=== PATIENT | female | born 1995 | race Caucasian/White ===

== ENCOUNTER 2021-02-24 02:21 | Inpatient (IN) ==
[2021-02-24] MEDS ORDERED: PENICILLIN G POTASSIUM 6 MU in DEXTROSE 5% 250 ML IV STA (03:28)
[2021-02-24] MEDS ORDERED: OXYTOCIN 30 UNITS/500 ML BAG IV PRN ×2 (03:28→14:13)
[2021-02-24] MEDS: LACTATED RINGER'S 1,000 ML IV PRN ×2 (03:28→04:50)
[2021-02-24] MEDS ORDERED: ePHEDrine sulfate 50 MG/ML AMP ONE (03:34)
[2021-02-24] MEDS ORDERED: BUPIVACAINE 0.25% 30 ML VIAL ONE ×2 (03:34→08:54)
[2021-02-24] MEDS ORDERED: SODIUM CHLORIDE 0.9% INJ 10 ML VIAL ONE (03:34)
[2021-02-24] MEDS ORDERED: fentaNYL 2MCG/ML ROPIVACAINE 1.25MG/ML 100 ML BAG EPI ONE (03:35)
[2021-02-24] MEDS ORDERED: fentaNYL citrate 100 MCG/2 ML VIAL ONE ×2 (03:35→08:55)
[2021-02-24 03:52] LABS: Hematocrit (blood only) 39.7 % (37-47); Hemoglobin 14.3 g/dL (12.0-16.0); Mean Corpuscular Hemoglobin 33.5 pg (25-34); Mean Platelet Volume 11.4 fL (7.4-10.4); Platelet Count 205 K/uL (130-400); RDW Coefficient of Variation 13.1 % (11.5-14.5); RDW Standard Deviation 44.2 fL (36.4-46.3); Red Blood Count 4.27 M/uL (4.2-5.4); White Blood Count 14.93 K/uL (4.8-10.8)
[2021-02-24] MEDS ORDERED: ONDANSETRON INJ 2 MG/ML 2 ML VIAL IV PRN (04:26)
[2021-02-24] MEDS ORDERED: diphenhydrAMINE 50 MG/ML VIAL IV PRN (04:26)
[2021-02-24] MEDS ORDERED: NALOXONE HCL 1 MG in SODIUM CHLORIDE 0.9% 1000ML 1,000 ML IV PRN (04:26)
[2021-02-24] MEDS ORDERED: ePHEDrine sulfate 50 MG/ML AMP IV PRN (04:26)
[2021-02-24] MEDS ORDERED: NALBUPHINE HCL INJ 10 MG/ML AMP IV PRN (04:26)
[2021-02-24] MEDS ORDERED: fentaNYL 2MCG/ML ROPIVACAINE 1.25MG/ML 100 ML BAG EPI PRN (04:26)
[2021-02-24] MEDS ORDERED: NALOXONE HCL 0.4 MG/1 ML VIAL/CARP IV PRN (04:26)
--- NOTE | 2021-02-24 04:28 | Anesthesiology Consultation ---
Date of Service February 24, 2021 Assessment & Plan (1) Encounter for pre-operative examination: Chart Review Chart Review: Patient NOT seen in Pre Admission Testing and Acceptable Risk for Labor Epidural Consults Requested none History Height/Weight Height: 5 ft 4 in Weight: 84.822 kg Allergies Allergy/AdvReac Type Severity Reaction Status Date / Time No Known Allergies Allergy Verified 02/19/21 13:31 Medications Home Medications Medication Instructions Recorded Confirmed Last Taken levothyroxine 25 mcg tablet 25 mcg PO DAILY 06/20/20 02/19/21 Unknown prenat.vits,zeeshan,lll-qahl-ckyqu 1 tab PO DAILY 07/03/20 02/19/21 Unknown cholecalciferol (vitamin D3) 50 4,000 unit PO DAILY #30 cap 12/20/20 02/19/21 Unknown mcg (2,000 unit) capsule Breast Pump #1 ea 01/24/21 02/19/21 Unknown Breast Pump #1 ea 02/13/21 02/19/21 Unknown Active Medications Generic Name Dose Route Start Last Admin Trade Name Freq PRN Reason Stop Dose Admin Lactated Ringer's 1,000 mls @ 125 mls/hr 02/24/21 03:28 02/24/21 03:28 Lr IV 02/26/21 03:27 999 mls/hr .Q8H PRN Administration L&D Protocol Protocol Past Medical History Medical History (Updated 02/24/21 @ 04:27 by John Stallings MD) Dermoid cyst of arm Encounter for pre-operative examination Varicella vaccination Past Family History Family History Family/Other Breast cancer cousin Mother Endometriosis Hypertension Sarcoidosis Grandmother (Maternal) Hyperthyroidism Denies family history of Ovarian cancer Colorectal cancer Past Surgical History Surgical History [place] teeth extracted Past Anesthesia History No Hx of Anesthesia Complications and No Family Hx of Anesthesia Complications History of PONV No Hx of PONV and No Hx of Motion Sickness Social History Smoking Status: Never smoker Do You Dip or Chew Tobacco: No Hx Alcohol Use: No Hx Substance Use: No substance use type: does not use Physical Exam Vital Signs Last Vital Signs Temp 36.8 C 02/24/21 02:49 Pulse 100 H 02/24/21 04:43 Resp 18 02/24/21 02:49 BP 131/85 02/24/21 04:36 Pulse Ox 95 02/24/21 04:43 Testing Laboratory Results 02/24/21 03:40
[2021-02-24] MEDS ORDERED: PENICILLIN G POTASSIUM 3 MU in DEXTROSE 5% 100 ML IV PRN (06:28)
--- NOTE | 2021-02-24 06:30 | History & Physical Report ---
Date of Service February 24, 2021 Assessment & Plan (1) : Plan: 25 y/o G1 at 39 1/7 wga presenting in labor VSS Fetus cat 1 primarily, had decel during straight cath but recovered Labor - plan arom, good progression GBS +, pcn started epidural in place Admission and Anticipated Discharge Date Admission Date: February 24, 2021 History of Present Illness Chief Complaint: Ctx Primary Care Provider: Amber Bautista MD 25 y/o G1 at 39 1/7 wga w/ ROCHELLE 03/02 by [facility] tri US presents w/ c/o ctx. +FM; denied LOF, VB. She was checked and found to be 2-3/90/-2 by nursing and romina q3-4min. 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 cycles 06/2020 neg cytology Denies hx STIs Allergies Allergy/AdvReac Type Severity Reaction Status Date / Time No Known Allergies Allergy Verified 02/19/21 13:31 Home Medications Medication Instructions Recorded Confirmed Type levothyroxine 25 mcg tablet 25 mcg PO DAILY 06/20/20 02/24/21 History prenat.vits,zeeshan,hch-pbol-mddtp 1 tab PO DAILY 07/03/20 02/24/21 History cholecalciferol (vitamin D3) 50 4,000 unit PO DAILY #30 cap 12/20/20 02/24/21 Rx mcg (2,000 unit) capsule Breast Pump #1 ea 01/24/21 02/19/21 Rx Breast Pump #1 ea 02/13/21 02/19/21 Rx Patient History Medical History (Updated 02/24/21 @ 06:27 by Marissa Gleason MD) Dermoid cyst of arm Encounter for pre-operative examination Robert's thyroiditis Varicella vaccination Surgical History [place] teeth extracted Family History Family/Other Breast cancer cousin Mother Endometriosis Hypertension Sarcoidosis Grandmother (Maternal) Hyperthyroidism Denies family history of Ovarian cancer Colorectal cancer Social History (Updated 07/03/20 @ 10:11 by Micheline Perez) Smoking Status: Never smoker Second Hand Exposure: No; Do You Dip or Chew Tobacco: No; Hx Alcohol Use: No Hx Substance Use: No Preferred Language: [place]al[place] Communication Ability: Effective Injection Molding Engineer Required: No Beliefs That Will Affect Care: None marital status: marital status details: Dereje Jean (24) [phone] Current Living Situation: Spouse Current Living Situation Comment: Pt lives with and a dog current occupational status: employed 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 [employer] Other Information That Helps Us Care for You: No Feels Safe at Home: Yes Safety Concerns: Feels Safe At This Time Assistive Devices: None Physical Exam Genitourinary: OB Exam Abdomen: + vertex Manual OB Exam: + cervical dilation (3-4), + cervical effacement 90% and + station -2 OB Exam Monitor Tracing: + external FHT monitor used, + external uterine monitor used (q2-3) and + category I (150/mod/+accel/decel noted during straight cath) Results & Data ([facility]) Vital Signs (Past 12 Hours) Vital Signs Temp Pulse Resp BP Pulse Ox 02/24/21 06:21 89 94 02/24/21 06:18 96 H 93 02/24/21 06:16 90 94 02/24/21 06:13 101 H 130/80 93 02/24/21 06:10 93 H 94 02/24/21 06:08 103 H 95 02/24/21 06:03 89 95 02/24/21 06:01 89 94 02/24/21 05:58 94 H 95 02/24/21 05:57 93 H 111/71 02/24/21 05:56 92 H 94 02/24/21 05:53 90 94 02/24/21 05:50 91 H 94 02/24/21 05:48 80 94 02/24/21 05:45 84 94 02/24/21 05:43 87 95 02/24/21 05:42 85 112/69 02/24/21 05:40 85 94 02/24/21 05:38 85 94 02/24/21 05:34 90 94 02/24/21 05:33 84 94 02/24/21 05:30 79 111/66 02/24/21 05:28 85 96 02/24/21 05:23 89 97 02/24/21 05:18 84 96 02/24/21 05:14 95 H 94 02/24/21 05:13 93 H 95 02/24/21 05:12 96 H 126/71 02/24/21 05:08 83 120/62 96 02/24/21 05:06 87 124/63 94 02/24/21 05:04 85 121/62 02/24/21 05:03 84 96 02/24/21 05:02 90 117/56 L 02/24/21 05:00 86 120/56 L 02/24/21 04:58 88 124/57 L 96 02/24/21 04:56 89 122/65 02/24/21 04:54 82 123/59 L 02/24/21 04:53 87 96 02/24/21 04:52 88 123/71 02/24/21 04:50 81 126/67 02/24/21 04:49 96 H 124/62 94 02/24/21 04:48 89 95 02/24/21 04:46 101 H 127/80 02/24/21 04:43 100 H 95 02/24/21 04:38 98 H 97 02/24/21 04:36 69 131/85 02/24/21 04:33 112 H 97 02/24/21 04:28 90 96 02/24/21 04:23 85 96 02/24/21 04:19 84 94 02/24/21 04:18 90 94 02/24/21 04:13 94 H 95 02/24/21 04:08 88 95 02/24/21 04:03 98 H 95 02/24/21 03:51 100 H 130/85 02/24/21 02:49 98.2 F 103 H 18 135/84 02/24/21 02:36 103 H 135/84 Laboratory Results OB Labs: Blood Type O Negative 07/10/20 Antibody Screen NEGATIVE 12/11/20 Hemoglobin 13.3 g/dL (12.0-16.0) 12/11/20 Hematocrit 39.0 % (37-47) 12/11/20 Mean Corpuscular Volume 88.6 fL (80-100) 08/10/20 Platelet Count 277 K/uL (130-400) 08/10/20 Rubella IgG Antibody Immune (Immune) 07/10/20 Rapid Plasma ReaginD Nonreactive (Nonreactive) 07/10/20 Hepatitis B Surface Antigen Neg (Neg) 07/10/20 HIV (1&2) Ab and P24 Ag, 4th Gener Neg (Neg) 07/10/20 Glucose 1 Hour 50 gm Load 111 mg/dl (70-130) 12/11/20 OB Optional Labs: Chlamydia trachomatis RNA NOT DETECTED (NOT DETECTED) 07/10/20 Neisseria gonorrhoeae RNA NOT DETECTED (NOT DETECTED) 07/10/20 Thyroid Stimulating Hormone (TSH) 0.432 uIu/ml (0.300-4.500) 12/04/20 Labs Reviewed: Declines cfdna, cf/sma Coding Level of Care Code None Diagnoses Z34.90
--- NOTE | 2021-02-24 07:16 | Labor Progress Brief Note ---
Date of Service February 24, 2021 Subjective Comfortable w/ epidural, nurses note bloody show Assessment & Plan (1) : Plan: 25 y/o G1 at 39 1/7 wga presenting in labor VSS Fetus cat 1 primarily, had decel during straight cath but recovered Labor - s/p arom, some progression even from last check. Continue expectant management GBS +, pcn started epidural in place Admission and Anticipated Discharge Date Admission Date: February 24, 2021 Physical Exam Genitourinary: Manual OB Exam: + cervical dilation 4 cm, + cervical effacement 90%, + station -2 and + amniotic fluid (arom clear) OB Exam Monitor Tracing: + external FHT monitor used, + external uterine monitor used (q2-4) and + category I (145/mod/+accel/-decel) Results & Data ([facility]) Vital Signs (Past 12 Hours) Vital Signs Temp Pulse Resp BP Pulse Ox 02/24/21 07:14 80 132/80 02/24/21 07:13 84 94 02/24/21 07:08 91 H 94 02/24/21 07:06 99 H 94 02/24/21 07:03 115 H 95 02/24/21 07:00 83 94 02/24/21 06:59 83 124/70 02/24/21 06:58 90 93 02/24/21 06:53 84 93 02/24/21 06:52 84 94 02/24/21 06:48 95 H 93 02/24/21 06:43 81 133/74 94 02/24/21 06:38 80 95 02/24/21 06:33 81 95 02/24/21 06:32 81 94 02/24/21 06:28 86 158/69 H 95 02/24/21 06:27 89 94 02/24/21 06:23 95 H 94 02/24/21 06:21 89 94 02/24/21 06:18 96 H 93 02/24/21 06:16 90 94 02/24/21 06:13 101 H 130/80 93 02/24/21 06:10 93 H 94 02/24/21 06:08 103 H 95 02/24/21 06:03 89 95 02/24/21 06:01 89 94 02/24/21 05:58 94 H 95 02/24/21 05:57 93 H 111/71 02/24/21 05:56 92 H 94 02/24/21 05:53 90 94 02/24/21 05:50 91 H 94 02/24/21 05:48 80 94 02/24/21 05:45 84 94 02/24/21 05:43 87 95 02/24/21 05:42 85 112/69 02/24/21 05:40 85 94 02/24/21 05:38 85 94 02/24/21 05:34 90 94 02/24/21 05:33 84 94 02/24/21 05:30 79 111/66 02/24/21 05:28 85 96 02/24/21 05:23 89 97 02/24/21 05:18 84 96 02/24/21 05:14 95 H 94 02/24/21 05:13 93 H 95 02/24/21 05:12 96 H 126/71 02/24/21 05:08 83 120/62 96 02/24/21 05:06 87 124/63 94 02/24/21 05:04 85 121/62 02/24/21 05:03 84 96 02/24/21 05:02 90 117/56 L 02/24/21 05:00 86 120/56 L 02/24/21 04:58 88 124/57 L 96 02/24/21 04:56 89 122/65 02/24/21 04:54 82 123/59 L 02/24/21 04:53 87 96 02/24/21 04:52 88 123/71 02/24/21 04:50 81 126/67 02/24/21 04:49 96 H 124/62 94 02/24/21 04:48 89 95 02/24/21 04:46 101 H 127/80 02/24/21 04:43 100 H 95 02/24/21 04:38 98 H 97 02/24/21 04:36 69 131/85 02/24/21 04:33 112 H 97 02/24/21 04:28 90 96 02/24/21 04:23 85 96 02/24/21 04:19 84 94 02/24/21 04:18 90 94 02/24/21 04:13 94 H 95 02/24/21 04:08 88 95 02/24/21 04:03 98 H 95 02/24/21 03:51 100 H 130/85 02/24/21 02:49 98.2 F 103 H 18 135/84 02/24/21 02:36 103 H 135/84 Coding Level of Care Code None Diagnoses Z34.90
[2021-02-24] MEDS ORDERED: Flu Vaccine (Fluarix) 0.5mL SYR (Standard Dose) IM ONE (12:45)
--- NOTE | 2021-02-24 13:27 | Delivery Summary ---
Vaginal Delivery Summary Date of Service February 24, 2021 Vaginal Delivery Summary Patient admitted in spontaneous labor was admitted by my colleague the night before requested epidural artificial rupture of membranes she then spontaneously reached fully dilated dilated and then pushed for an hour delivering a baby in occiput anterior position fluid was clear no nuchal cord gentle traction no excessive force used live vigorous male cord clamped cord blood obtained placenta removed with traction IV Pitocin started second-degree tear repaired with 3-0 Vicryl sponge and instrument counts correct estimated blood loss 300 mL Note approximately half an hour after delivery there was a trickle I reassessed and found there was a small tear there is tissues were somewhat friable. And this required local anesthetic with lidocaine and then repair with 3-0 Vicryl. At this stage bleeding improved substantially perhaps 400 mL total blood loss that is 300 at delivery and 100 since
--- NOTE | 2021-02-24 13:38 | Anesthesia Procedure Note ---
Date of Service February 24, 2021 Anesthesia Post Epidural Note Vital Signs Vital Signs: Temp Pulse Resp BP Pulse Ox 98.1 F 109 H 18 123/73 87 L 02/24/21 12:17 02/24/21 13:36 02/24/21 10:30 02/24/21 13:36 02/24/21 13:13 Pain Intensity Left Lower Abdomen: Pain Intensity: 8 Notes Mental Status: alert / awake / arousable and participated in evaluation Nausea / Vomiting: adequately controlled Pain: adequately controlled Airway Patency, RR, SpO2: stable & adequate BP & HR: stable & adequate Hydration State: stable & adequate Neuraxial Anesthesia: was administered and sensory block is resolving Anesthetic Complications: no major complications apparent and Pt Satisfied with anesthetic care Epidural: Removed without complications and With tip intact
[2021-02-24] MEDS ORDERED: HYDROCORTISONE ACETATE 25 MG SUPP PR PRN (14:13)
[2021-02-24] MEDS ORDERED: DIPHTHERIA/TETANUS/PERTUSSIS 0.5 ML SYR/VIAL IM ONE (14:13)
[2021-02-24] MEDS ORDERED: oxyCODONE/ACETAMINOPHEN 5mg/325mg TAB PO PRN (14:13)
[2021-02-24] MEDS ORDERED: bisacodyL 10 MG SUPP PR PRN (14:13)
[2021-02-24] MEDS ORDERED: BENZOCAINE 20% AER SPR 82.5 GM CAN EXT PRN (14:13)
[2021-02-24] MEDS ORDERED: SUPERCREAM 0.870% 15 GM JAR EXT PRN (14:13)
[2021-02-24] MEDS ORDERED: LIDOCAINE 1% LOCAL 20 ML VIAL ONE (14:25)
[2021-02-24] MEDS: ACETAMINOPHEN 325 MG TAB PO PRN (14:47)
[2021-02-24] MEDS: IBUPROFEN 600 MG TAB PO PRN ×2 (17:54→21:44)
[2021-02-24] MEDS ORDERED: DOCUSATE SODIUM 100 MG CAP PO SCH (21:00)
[2021-02-25] MEDS: ACETAMINOPHEN 325 MG TAB PO PRN (00:46)
[2021-02-25] MEDS: IBUPROFEN 600 MG TAB PO PRN ×3 (03:28→20:34)
[2021-02-25] MEDS ORDERED: SUPERCREAM 0.870% 15 GM JAR EXT PRN (05:59)
[2021-02-25] MEDS ORDERED: HYDROCORTISONE ACETATE 25 MG SUPP PR PRN (05:59)
[2021-02-25] MEDS ORDERED: OXYTOCIN 30 UNITS/500 ML BAG IV PRN (05:59)
[2021-02-25] MEDS ORDERED: ACETAMINOPHEN 325 MG TAB PO PRN (05:59)
[2021-02-25] MEDS ORDERED: BENZOCAINE 20% AER SPR 82.5 GM CAN EXT PRN (05:59)
[2021-02-25] MEDS ORDERED: bisacodyL 10 MG SUPP PR PRN (05:59)
[2021-02-25] MEDS: DOCUSATE SODIUM 100 MG CAP PO SCH ×3 (06:23→20:33)
[2021-02-25] MEDS ORDERED: LEVOTHYROXINE SODIUM 25 MCG TABLET PO SCH (06:30)
[2021-02-25 07:23] LABS: Hematocrit (blood only) 32.3 % (37-47); Hemoglobin 10.9 g/dL (12.0-16.0); Mean Corpuscular Hemoglobin 31.1 pg (25-34); Mean Corpuscular Hgb Conc 33.7 g/dL (32-36); Mean Corpuscular Volume 92.3 fL (80-100); Mean Platelet Volume 11.6 fL (7.4-10.4); Platelet Count 182 K/uL (130-400); RDW Coefficient of Variation 13.2 % (11.5-14.5); RDW Standard Deviation 44.1 fL (36.4-46.3); White Blood Count 19.26 K/uL (4.8-10.8)
--- NOTE | 2021-02-25 07:40 | Obstetrical Progress Note ---
Date of Service February 25, 2021 Assessment & Plan (1) Post-operative state: PPS 1 doing well, no issues Subjective Ambulation: ambulating normally Voiding: no voiding problems Diet Tolerance:: regular diet Lochia:: Small Feeding Type:: breast feeding Results & Data ([facility]) Vital Signs (Past 12 Hours) Vital Signs Temp Pulse Pulse Resp BP Pulse Ox 02/25/21 03:30 97.9 F 93 H 18 109/66 97 02/24/21 23:35 97.9 F 104 H 20 126/84 98
[2021-02-25] MEDS ORDERED: PRENATAL VITAMIN 1 TAB PO SCH (08:00)
[2021-02-25] MEDS: PRENATAL VITAMIN 1 TAB PO SCH (08:07)
[2021-02-25] MEDS ORDERED: NON-FORMULARY MEDICATION (Prenat.Vits,Cal,Min-Iron-Folic tablet) PO SCH (09:00)
[2021-02-25] MEDS ORDERED: CHOLECALCIFEROL 1,000 UNITS 25 MCG TAB PO SCH (09:00)
[2021-02-25] MEDS ORDERED: bisacodyL 5 MG TABEC PO SCH ×2 (20:00)
[2021-02-26] MEDS: IBUPROFEN 600 MG TAB PO PRN (00:39)
--- NOTE | 2021-02-26 06:42 | Obstetrical Progress Note ---
Date of Service February 26, 2021 Assessment & Plan (1) state: PPD #2 No ext pain, doing well, home Subjective Ambulation: ambulating normally Voiding: no voiding problems Passing Gas:: Yes Diet Tolerance:: regular diet Lochia:: Small Feeding Type:: breast feeding Current Pain Level(1-10): 0 Results & Data ([facility]) Vital Signs (Past 12 Hours) Vital Signs Temp Pulse Resp BP 02/26/21 00:30 97.9 F 106 H 18 128/83
[2021-02-26 07:50] LABS: Hematocrit (blood only) 31.1 % (37-47); Hemoglobin 10.7 g/dL (12.0-16.0)
[2021-02-26] MEDS: DOCUSATE SODIUM 100 MG CAP PO SCH (07:57)
[2021-02-26] MEDS: PRENATAL VITAMIN 1 TAB PO SCH (07:57)
== END 2021-02-26 10:50 | disposition home or self-care (01) | DRG 807 ==
LOC: OPB 02:21 → 4S1 02:24 → 4S2 17:54

== ENCOUNTER 2023-12-02 18:11 | Inpatient (IN) ==
[2023-12-02] MEDS ORDERED: LIDOCAINE 1% LOCAL 20 ML VIAL INFIL PRN (18:16)
[2023-12-02] MEDS ORDERED: OXYTOCIN 30 UNITS/NSS 30 UNITS/500 ML BAG IV PRN (18:16)
--- NOTE | 2023-12-02 18:22 | Labor Progress Brief Note ---
Date of Service December 02, 2023 Subjective Patient returns to L&D with c/o now much more painful contractions Q3min. Scant VB. No ROM, good FM. Assessment & Plan (1) Normal labor: Plan: Patient now demonstrating cervical change, will admit in labor, epidural on request. Physical Exam Genitourinary: /-2 Bulging/intact membranes FHT Cat 1 Coding Level of Care Code None Diagnoses Normal labor O80; Z37.9
[2023-12-02] MEDS: LACTATED RINGER'S 1,000 ML IV PRN (18:44)
--- NOTE | 2023-12-02 19:01 | Anesthesiology Consultation ---
Date of Service December 02, 2023 Assessment & Plan (1) Encounter for pre-operative examination: Chart Review Chart Review: Acceptable Risk for Labor Epidural History Allergies Allergy/AdvReac Type Severity Reaction Status Date / Time No Known Allergies Allergy Verified 11/25/23 15:48 Medications Home Medications Medication Instructions Recorded Confirmed Last Taken fluoxetine [Prozac] 40 mg PO ONCE 04/28/23 12/02/23 12/01/23 21:00 21-iron fu-folic acid PO 04/28/23 12/01/23 Unknown [ Complete] levothyroxine 50 mcg tablet 50 mcg PO .COMPLEX #45 tabs 06/26/23 12/01/23 Unknown levothyroxine 75 mcg tablet 75 mcg PO .COMPLEX #45 tabs 06/26/23 12/01/23 12/02/23 06:00 Active Medications Generic Name Dose Route Start Last Admin Trade Name Freq PRN Reason Stop Dose Admin Lactated Ringer's 1,000 mls @ 125 mls/hr 12/02/23 18:16 12/02/23 18:44 Lr IV 12/04/23 18:15 999 mls/hr .Q8H PRN Administration L&D Protocol Protocol Past Medical History Medical History Dermoid cyst of arm Varicella vaccination Past Family History Family History Family/Other Breast cancer cousin Mother Endometriosis Hypertension Sarcoidosis Grandmother (Maternal) Hyperthyroidism Denies family history of Ovarian cancer Colorectal cancer Past Surgical History Surgical History Status post surgery dermoid cyst removed from arm [place] teeth extracted Social History Smoking Status: Never smoker Do You Dip or Chew Tobacco: No Hx Alcohol Use: No Hx Substance Use: No substance use type: does not use Physical Exam Vital Signs Last Vital Signs Pulse 120 H 12/02/23 18:54 BP 138/86 12/02/23 18:38 Pulse Ox 98 12/02/23 18:54 Testing Laboratory Results Laboratory Tests 12/02/23 18:37 Hgb 13.8 Plt Count 171
[2023-12-02 19:03] LABS: Hematocrit (blood only) 40.1 % (37.0-47.0); Hemoglobin 13.8 g/dl (12.0-16.0); Mean Corpuscular Hemoglobin 30.3 pg (25.0-34.0); Mean Corpuscular Hgb Conc 34.4 g/dL (32.0-36.0); Mean Corpuscular Volume 88.1 fL (80.0-100.0); Mean Platelet Volume 12.4 fL (9.4-12.4); Platelet Count 171 K/uL (130-400); RDW Coefficient of Variation 12.7 % (11.5-14.5); RDW Standard Deviation 41.3 fL (36.4-46.3); Red Blood Count 4.55 M/uL (4.20-5.40); White Blood Count 13.26 K/ul (4.8-10.8)
[2023-12-02] MEDS: BUPIVACAINE 0.25% PF 30 ML VIAL ONE (19:33)
[2023-12-02] MEDS: LIDOCAINE 2%/EPINEPHRINE 1:200,000 20 ML PF ONE (19:33)
[2023-12-02] MEDS: fentaNYL citrate PF 100 MCG/2 ML VIAL ONE (19:33)
[2023-12-02] MEDS: fentANYL 2 MCG/ML BUPIVacaine 0.125%-NSS 100ML BAG ONE (19:34)
[2023-12-02] MEDS ORDERED: fentaNYL citrate PF 100 MCG/2 ML VIAL EPI STA (19:38)
[2023-12-02] MEDS ORDERED: NALOXONE HCL 0.4 MG/1 ML VIAL/CARP IV PRN (19:38)
[2023-12-02] MEDS ORDERED: SODIUM CHLORIDE 0.9% PF INJ 10 ML VIAL EPI STA (19:38)
[2023-12-02] MEDS ORDERED: LIDOCAINE 2% MPF LOCAL 5 ML VIAL EPI PRN (19:38)
[2023-12-02] MEDS ORDERED: ROPIVACAINE 0.5% PF 5 MG/ML 20 ML VIAL EPI PRN (19:38)
[2023-12-02] MEDS ORDERED: SODIUM CHLORIDE 0.9% PF INJ 10 ML VIAL EPI PRN (19:38)
[2023-12-02] MEDS ORDERED: fentANYL 2 MCG/ML BUPIVacaine 0.125%-NSS 100ML BAG EPI PRN (19:38)
[2023-12-02] MEDS ORDERED: ePHEDrine sulfate 50 MG/ML AMP IV PRN (19:38)
[2023-12-02] MEDS ORDERED: LIDOCAINE 2%/EPINEPHRINE 1:200,000 20 ML PF EPI STA (19:38)
[2023-12-02] MEDS ORDERED: BUPIVACAINE 0.25% PF 30 ML VIAL EPI PRN (19:38)
[2023-12-02] MEDS ORDERED: NALOXONE HCL 1 MG in SODIUM CHLORIDE 0.9% 1,000 ML IV PRN (19:38)
[2023-12-02] MEDS ORDERED: ONDANSETRON INJ 2 MG/ML 2 ML VIAL IV PRN (19:38)
[2023-12-02] MEDS ORDERED: fentaNYL citrate PF 100 MCG/2 ML VIAL EPI PRN (19:38)
[2023-12-02] MEDS ORDERED: BUPIVACAINE 0.25% PF 30 ML VIAL EPI STA (19:38)
[2023-12-02] MEDS: OXYTOCIN 30 UNITS/NSS 30 UNITS/500 ML BAG IV PRN (23:15)
--- NOTE | 2023-12-02 23:36 | Delivery Summary ---
Vaginal Delivery Summary Date of Service December 02, 2023 Vaginal Delivery Summary DIAGNOSES: 1. Mares intrauterine at 38w3d gestation. 2. Spontaneous onset of labor. 3. Group B Streptococcus Neg. PROCEDURE: Spontaneous vaginal delivery and repair of second degree laceration. SURGEON: Claudia Sena MD. PRINTER'S ASSISTANT: None. QUANTITATIVE BLOOD LOSS: TBD mL. EBL = 250 COMPLICATIONS: None. PLACENTA: Spontaneous and intact with a 3-vessel cord. DISPOSITION: Stable to labor and delivery. DESCRIPTION: The patient pushed well and brought the head to in OA position. The 's head was allowed to deliver with contraction force and no further active pushing, with the perineum protected during this time. Without any pause, the shoulders and body delivered rapidly and without any difficulty, and the was placed on the maternal abdomen. It was vigorous and moving all extremities, and making respiratory efforts. The cord was doubly clamped by the MD and then cut. The placenta delivered spontaneously and was noted to be intact and with a 3VC. The cervix, vagina and perineum were examined and were found to have a second degree laceration which was repaired using vicryl suture in the usual manner, including a crown stitch to rebuild the perineal body. The fundus was firm and lochia minimal immediately after delivery. [facility] Vaginal Delivery Charge Vaginal Delivery Codes: 87191 global code for the antepartum, delivery, and post-
[2023-12-02] MEDS ORDERED: HYDROCORTISONE ACETATE 25 MG SUPP PR PRN (23:52)
[2023-12-02] MEDS ORDERED: oxyCODONE/ACETAMINOPHEN 5mg/325mg TAB PO PRN (23:52)
[2023-12-02] MEDS: SODIUM CHLORIDE 0.9% PF INJ 10 ML VIAL ONE (23:56)
[2023-12-02] MEDS: ePHEDrine sulfate 50 MG/ML AMP ONE (23:56)
[2023-12-03] MEDS: DIPHTHER/TETAN/PERTUS Vaccine (Tdap, Adol/Adult) 0.5mL IM ONE (00:24)
[2023-12-03] MEDS: BENZOCAINE 20% SPRY 85 APPLN/85 GM CAN EXT PRN (02:08)
[2023-12-03 06:11] LABS: Hematocrit (blood only) 34.2 % (37.0-47.0); Hemoglobin 11.9 g/dl (12.0-16.0); Mean Corpuscular Hemoglobin 31.2 pg (25.0-34.0); Mean Corpuscular Hgb Conc 34.8 g/dL (32.0-36.0); Mean Corpuscular Volume 89.8 fL (80.0-100.0); Mean Platelet Volume 12.3 fL (9.4-12.4); Platelet Count 142 K/uL (130-400); RDW Coefficient of Variation 12.7 % (11.5-14.5); RDW Standard Deviation 41.3 fL (36.4-46.3); Red Blood Count 3.81 M/uL (4.20-5.40)
--- NOTE | 2023-12-03 06:43 | Obstetrical Progress Note ---
Date of Service December 03, 2023 Assessment & Plan (1) Encounter for assessment: Plan: Patient is PPD 1 s/p and doing well - Eating well, voiding well, ambulating well - vitals reviewed and within normal limits - pain well controlled with analgesics - OOB, ambulation, diet progression as tolerated - Blood type: O-, GBS neg, rubella immune - Plan to discharge tomorrow - After discharge, 6 week follow up with OBGYN Admission and Anticipated Discharge Date Admission Date: December 02, 2023 Supervising Physician Co-Signing Physician Notes Resident Physician Supervision Note: I interviewed and examined the patient. Discussed with Dr. Aranda and agree with findings and plan as documented in the note. Any exceptions or clarifications are listed here: [ ] Documented By: Claudia Sena MD, FACOG Subjective 28 yo post- day 1 s/p Ambulation: ambulating normally Voiding: no voiding problems Passing Gas:: Yes Diet Tolerance:: regular diet Lochia:: Small Feeding Type:: bottle feeding Current Pain Level: 3-4/10 Resting comfortably this AM in NAD. Denies SR, CP, SOB, N/V/D, LE pain/swelling. Physical Exam Physical Exam: General: patient resting comfortably, NAD, non-toxic in appearance, answers questions appropriately. Skin: warm, dry, intact HEENT: NC/AT, anicteric sclera, conjunctiva without injection, moist mucus membranes. Heart: +S1/S2, regular, no m/r/g Lungs: equal air entry bilaterally, no rales/rhonchi/wheezes Abd: +BS, soft, NT/ND, uterine fundus firm at umbilicus Ext: warm, no clubbing/cyanosis or edema, Mouna's neg. Neuro: nonfocal, speech intact, no facial droop, moving all extremities. Results & Data Vital Signs (Past 12 Hours) Vital Signs Temp Pulse Pulse Resp BP BP Pulse Ox 12/03/23 03:00 36.6 C 92 H 16 111/72 98 12/03/23 01:31 97 H 112/64 12/03/23 01:30 36.6 C 20 12/03/23 01:16 102 H 116/62 12/03/23 01:02 105 H 108/62 12/03/23 01:00 18 12/03/23 00:46 97 H 131/72 12/03/23 00:31 94 H 129/74 12/03/23 00:30 20 12/03/23 00:16 93 H 123/65 12/03/23 00:15 18 12/03/23 00:01 97 H 139/73 12/03/23 00:00 18 12/02/23 23:47 92 H 12/02/23 23:47 129/68 12/02/23 23:45 18 12/02/23 23:31 92 H 12/02/23 23:31 131/68 12/02/23 23:30 20 12/02/23 23:29 100 12/02/23 23:29 95 H 12/02/23 23:24 99 12/02/23 23:24 90 12/02/23 23:21 78 12/02/23 23:21 103/63 12/02/23 23:19 100 12/02/23 23:19 83 12/02/23 23:14 99 12/02/23 23:14 102 H 12/02/23 23:09 100 12/02/23 23:09 103 H 12/02/23 23:06 81 12/02/23 23:06 114/59 L 12/02/23 23:04 97 12/02/23 23:04 85 12/02/23 22:59 98 12/02/23 22:59 92 H 12/02/23 22:54 98 12/02/23 22:54 83 12/02/23 22:51 85 12/02/23 22:51 110/65 12/02/23 22:49 98 12/02/23 22:49 88 12/02/23 22:44 98 12/02/23 22:44 84 12/02/23 22:39 99 12/02/23 22:39 89 12/02/23 22:36 81 12/02/23 22:36 110/55 L 12/02/23 22:34 98 12/02/23 22:34 89 12/02/23 22:29 98 12/02/23 22:29 86 12/02/23 22:24 98 12/02/23 22:24 77 12/02/23 22:21 105 H 12/02/23 22:21 115/68 12/02/23 22:19 98 12/02/23 22:19 94 H 12/02/23 22:14 98 12/02/23 22:14 79 12/02/23 22:09 97 12/02/23 22:09 87 12/02/23 22:06 88 12/02/23 22:06 104/59 L 12/02/23 22:04 100 12/02/23 22:04 88 12/02/23 21:59 99 12/02/23 21:59 85 12/02/23 21:54 99 12/02/23 21:54 87 12/02/23 21:51 90 12/02/23 21:51 106/62 12/02/23 21:50 36.9 C 12/02/23 21:49 98 12/02/23 21:49 87 12/02/23 21:44 97 12/02/23 21:44 81 12/02/23 21:39 97 12/02/23 21:39 92 H 12/02/23 21:36 81 12/02/23 21:36 116/76 12/02/23 21:34 98 12/02/23 21:34 86 12/02/23 21:29 98 12/02/23 21:29 82 12/02/23 21:24 98 12/02/23 21:24 78 12/02/23 21:21 80 12/02/23 21:21 120/68 12/02/23 21:19 98 12/02/23 21:19 77 12/02/23 21:14 98 12/02/23 21:14 77 12/02/23 21:09 98 12/02/23 21:09 79 12/02/23 21:04 98 12/02/23 21:04 79 12/02/23 20:59 98 12/02/23 20:59 87 12/02/23 20:54 100 12/02/23 20:54 85 12/02/23 20:51 86 12/02/23 20:51 103/55 L 12/02/23 20:49 100 12/02/23 20:49 85 12/02/23 20:47 84 12/02/23 20:47 111/57 L 12/02/23 20:44 100 12/02/23 20:44 89 12/02/23 20:41 86 12/02/23 20:41 110/57 L 12/02/23 20:39 100 12/02/23 20:39 95 H 12/02/23 20:36 91 H 12/02/23 20:36 114/61 12/02/23 20:34 100 12/02/23 20:34 91 H 12/02/23 20:31 74 12/02/23 20:31 106/61 12/02/23 20:29 99 12/02/23 20:29 96 H 12/02/23 20:27 87 12/02/23 20:27 100/56 L 12/02/23 20:24 100 12/02/23 20:24 85 12/02/23 20:22 88 12/02/23 20:22 122/58 L 12/02/23 20:19 98 12/02/23 20:19 93 H 12/02/23 20:14 100 12/02/23 20:14 97 H 12/02/23 20:12 117 H 12/02/23 20:12 122/54 L 12/02/23 20:09 100 12/02/23 20:09 86 12/02/23 20:07 78 12/02/23 20:07 120/59 L 12/02/23 20:04 100 12/02/23 20:04 93 H 12/02/23 20:02 83 12/02/23 20:02 151/60 H 12/02/23 19:59 100 12/02/23 19:59 78 12/02/23 19:56 85 12/02/23 19:56 110/65 12/02/23 19:54 100 12/02/23 19:54 89 12/02/23 19:51 89 12/02/23 19:51 112/63 12/02/23 19:50 36.8 C 20 12/02/23 19:49 97 12/02/23 19:49 91 H 12/02/23 19:45 106 H 12/02/23 19:45 118/72 12/02/23 19:44 99 12/02/23 19:44 91 H 12/02/23 19:43 90 12/02/23 19:43 113/70 12/02/23 19:41 80 12/02/23 19:41 119/66 12/02/23 19:39 98 12/02/23 19:39 85 12/02/23 19:39 114/72 12/02/23 19:37 82 12/02/23 19:37 118/69 12/02/23 19:35 93 H 12/02/23 19:35 113/67 12/02/23 19:34 99 12/02/23 19:34 79 12/02/23 19:34 88 12/02/23 19:34 111/62 12/02/23 19:30 93 H 12/02/23 19:30 109/70 12/02/23 19:29 99 12/02/23 19:29 84 12/02/23 19:24 99 12/02/23 19:24 85 12/02/23 19:19 100 12/02/23 19:19 105 H 12/02/23 19:14 99 12/02/23 19:14 97 H 12/02/23 19:10 36.9 C 96 H 22 100 12/02/23 19:09 99 12/02/23 19:09 79 12/02/23 19:04 96 H 100 12/02/23 18:59 98 H 99 12/02/23 18:54 120 H 98 12/02/23 18:49 101 H 98 12/02/23 18:44 88 98 O2 Del Method 12/03/23 03:00 Room Air 12/03/23 01:31 12/03/23 01:30 12/03/23 01:16 12/03/23 01:02 12/03/23 01:00 12/03/23 00:46 12/03/23 00:31 12/03/23 00:30 12/03/23 00:16 12/03/23 00:15 12/03/23 00:01 12/03/23 00:00 12/02/23 23:47 12/02/23 23:47 12/02/23 23:45 12/02/23 23:31 12/02/23 23:31 12/02/23 23:30 12/02/23 23:29 12/02/23 23:29 12/02/23 23:24 12/02/23 23:24 12/02/23 23:21 12/02/23 23:21 12/02/23 23:19 12/02/23 23:19 12/02/23 23:14 12/02/23 23:14 12/02/23 23:09 12/02/23 23:09 12/02/23 23:06 12/02/23 23:06 12/02/23 23:04 12/02/23 23:04 12/02/23 22:59 12/02/23 22:59 12/02/23 22:54 12/02/23 22:54 12/02/23 22:51 12/02/23 22:51 12/02/23 22:49 12/02/23 22:49 12/02/23 22:44 12/02/23 22:44 12/02/23 22:39 12/02/23 22:39 12/02/23 22:36 12/02/23 22:36 12/02/23 22:34 12/02/23 22:34 12/02/23 22:29 12/02/23 22:29 12/02/23 22:24 12/02/23 22:24 12/02/23 22:21 12/02/23 22:21 12/02/23 22:19 12/02/23 22:19 12/02/23 22:14 12/02/23 22:14 12/02/23 22:09 12/02/23 22:09 12/02/23 22:06 12/02/23 22:06 12/02/23 22:04 12/02/23 22:04 12/02/23 21:59 12/02/23 21:59 12/02/23 21:54 12/02/23 21:54 12/02/23 21:51 12/02/23 21:51 12/02/23 21:50 12/02/23 21:49 12/02/23 21:49 12/02/23 21:44 12/02/23 21:44 12/02/23 21:39 12/02/23 21:39 12/02/23 21:36 12/02/23 21:36 12/02/23 21:34 12/02/23 21:34 12/02/23 21:29 12/02/23 21:29 12/02/23 21:24 12/02/23 21:24 12/02/23 21:21 12/02/23 21:21 12/02/23 21:19 12/02/23 21:19 12/02/23 21:14 12/02/23 21:14 12/02/23 21:09 12/02/23 21:09 12/02/23 21:04 12/02/23 21:04 12/02/23 20:59 12/02/23 20:59 12/02/23 20:54 12/02/23 20:54 12/02/23 20:51 12/02/23 20:51 12/02/23 20:49 12/02/23 20:49 12/02/23 20:47 12/02/23 20:47 12/02/23 20:44 12/02/23 20:44 12/02/23 20:41 12/02/23 20:41 12/02/23 20:39 12/02/23 20:39 12/02/23 20:36 12/02/23 20:36 12/02/23 20:34 12/02/23 20:34 12/02/23 20:31 12/02/23 20:31 12/02/23 20:29 12/02/23 20:29 12/02/23 20:27 12/02/23 20:27 12/02/23 20:24 12/02/23 20:24 12/02/23 20:22 12/02/23 20:22 12/02/23 20:19 12/02/23 20:19 12/02/23 20:14 12/02/23 20:14 12/02/23 20:12 12/02/23 20:12 12/02/23 20:09 12/02/23 20:09 12/02/23 20:07 12/02/23 20:07 12/02/23 20:04 12/02/23 20:04 12/02/23 20:02 12/02/23 20:02 12/02/23 19:59 12/02/23 19:59 12/02/23 19:56 12/02/23 19:56 12/02/23 19:54 12/02/23 19:54 12/02/23 19:51 12/02/23 19:51 12/02/23 19:50 12/02/23 19:49 12/02/23 19:49 12/02/23 19:45 12/02/23 19:45 12/02/23 19:44 12/02/23 19:44 12/02/23 19:43 12/02/23 19:43 12/02/23 19:41 12/02/23 19:41 12/02/23 19:39 12/02/23 19:39 12/02/23 19:39 12/02/23 19:37 12/02/23 19:37 12/02/23 19:35 12/02/23 19:35 12/02/23 19:34 12/02/23 19:34 12/02/23 19:34 12/02/23 19:34 12/02/23 19:30 12/02/23 19:30 12/02/23 19:29 12/02/23 19:29 12/02/23 19:24 12/02/23 19:24 12/02/23 19:19 12/02/23 19:19 12/02/23 19:14 12/02/23 19:14 12/02/23 19:10 12/02/23 19:09 12/02/23 19:09 12/02/23 19:04 12/02/23 18:59 12/02/23 18:54 12/02/23 18:49 12/02/23 18:44 Resident Activity Tracking Resident Involvement: Resident Care Provided Care Provided: OB Delivery (1) Encounter for assessment visit type: exam and care immediately after delivery Qualified Code(s): Z39.0 - Encounter for care and examination of mother immediately after delivery
[2023-12-03] MEDS: LEVOTHYROXINE SODIUM 50 MCG TABLET PO SCH (07:17)
[2023-12-03] MEDS: IBUPROFEN 600 MG TAB PO PRN (07:48)
[2023-12-03] MEDS: DOCUSATE SODIUM 100 MG CAP PO SCH (07:48)
[2023-12-03] MEDS: PRENATAL VITAMIN 1 TAB PO SCH (07:48)
--- NOTE | 2023-12-03 08:25 | Anesthesia Procedure Note ---
Date of Service December 03, 2023 Anesthesia Post Epidural Note Vital Signs Vital Signs: Temp Pulse Resp BP Pulse Ox O2 Del Method 36.6 C 92 H 16 111/72 98 Room Air 12/03/23 03:00 12/03/23 03:00 12/03/23 03:00 12/03/23 03:00 12/03/23 03:00 12/03/23 03:00 Notes Mental Status: alert / awake / arousable Nausea / Vomiting: adequately controlled Pain: adequately controlled Airway Patency, RR, SpO2: stable & adequate BP & HR: stable & adequate Hydration State: stable & adequate Neuraxial Anesthesia: was administered and sensory block is resolving Anesthetic Complications: no major complications apparent and Pt Satisfied with anesthetic care Epidural: Removed without complications and With tip intact
[2023-12-03] MEDS ORDERED: Nursing to Pharmacy Communication SCH (10:30)
[2023-12-03] MEDS: FLUoxetine HCL 20 MG CAP PO SCH ×2 (10:33→20:42)
[2023-12-03] MEDS: ACETAMINOPHEN 325 MG TAB PO PRN (20:44)
[2023-12-03] MEDS: bisacodyL 5 MG TABEC PO SCH (20:44)
[2023-12-03 23:51] VITALS: O2SAT 97
[2023-12-04] MEDS ORDERED: bisacodyL 10 MG SUPP PR PRN
[2023-12-04 06:29] LABS: Hematocrit (blood only) 33.5 % (37.0-47.0); Hemoglobin 11.4 g/dl (12.0-16.0)
--- NOTE | 2023-12-04 06:49 | Obstetrical Progress Note ---
Date of Service December 04, 2023 Assessment & Plan (1) Encounter for assessment: Plan: Patient is PPD 2 s/p and doing well - Eating well, voiding well, ambulating well - vitals reviewed and within normal limits - pain well controlled with analgesics - OOB, ambulation, diet progression as tolerated - Blood type: O-, GBS neg, rubella immune - Plan to discharge today - After discharge, 6 week follow up with OBGYN Admission and Anticipated Discharge Date Admission Date: December 02, 2023 Supervising Physician Co-Signing Physician Notes Resident Physician Supervision Note: I interviewed and examined the patient. Discussed with Dr. Aranda and agree with findings and plan as documented in the note. Any exceptions or clarifications are listed here: [None] Documented By: Kira Tran MD, FACOG Subjective 28 yo post- day 2 s/p Ambulation: ambulating normally Voiding: no voiding problems Passing Gas:: Yes Diet Tolerance:: regular diet Lochia:: Small Feeding Type:: bottle feeding Current Pain Level: 3-4/10 Resting comfortably this AM in NAD. Denies SR, CP, SOB, N/V/D, LE pain/swelling. Physical Exam Physical Exam: General: patient resting comfortably, NAD, non-toxic in appearance, answers questions appropriately. Skin: warm, dry, intact HEENT: NC/AT, anicteric sclera, conjunctiva without injection, moist mucus membranes. Heart: +S1/S2, regular, no m/r/g Lungs: equal air entry bilaterally, no rales/rhonchi/wheezes Abd: +BS, soft, NT/ND, uterine fundus firm at umbilicus Ext: warm, no clubbing/cyanosis or edema, Mouna's neg. Neuro: nonfocal, speech intact, no facial droop, moving all extremities. Results & Data Vital Signs (Past 12 Hours) Vital Signs Temp Pulse Resp BP Pulse Ox O2 Del Method 12/03/23 23:30 36.6 C 96 H 18 104/68 97 Room Air 12/03/23 20:45 36.7 C 88 18 117/75 98 Room Air Resident Activity Tracking Resident Involvement: Resident Care Provided Care Provided: OB Delivery (1) Encounter for assessment visit type: exam and care immediately after delivery Qualified Code(s): Z39.0 - Encounter for care and examination of mother immediately after delivery
[2023-12-04] MEDS: LEVOTHYROXINE SODIUM 75 MCG TABLET PO SCH (07:12)
[2023-12-04 10:23] VITALS: BP 123/71; PULSE 94; RESP 20; TEMP 98.1
== END 2023-12-04 12:48 | disposition home or self-care (01) | DRG 807 ==
LOC: OPB 18:11 → 4S1 18:12 → 4E2 12-03 01:58